=== PATIENT | male | born 1995 | race Hispanic/Latino ===

== ENCOUNTER 2019-12-02 09:54 | Emergency (ER) | payer OTHER, SELFPAY ==
[2019-12-02 18:10] LABS: SARS-CoV-2 MS2 Positive; SARS-CoV-2 N Gene Positive; SARS-CoV-2 S Gene Positive; SARS-CoV-2 orf1ab Positive
== END 2019-12-02 11:04 | disposition home or self-care (01) ==
LOC: ERS 09:54
DX: U07.1 COVID-19 (principal); J02.9 Acute pharyngitis, unspecified; R09.81 Nasal congestion; B20 Human immunodeficiency virus [HIV] disease
CPT/HCPCS: 87635; 99283; U0003